=== PATIENT | female | born 1960 | race Caucasian/White ===

== ENCOUNTER 2017-01-13 18:03 | Emergency (ER) | payer OTHER ==
[~2017-01-13] VITALS: Ht 157.5 cm; Wt 57.7 kg
[~2017-01-13 18:03] MED LIST: BP MEDS; FLUID; Zestril,Prinivil PO
[2017-01-13 18:20] VITALS: BP 150/91
== END 2017-01-13 21:03 | disposition home or self-care (01) ==
LOC: EME 18:03
DX: S01.01XA Laceration without foreign body of scalp, initial encounter (principal); F10.129 Alcohol abuse with intoxication, unspecified; I10 Essential (primary) hypertension; W18.30XA Fall on same level, unspecified, initial encounter; Y92.89 Other specified places as the place of occurrence of the external cause
CPT/HCPCS: 99281; 99284

== ENCOUNTER 2017-04-01 17:40 | Emergency (ER) | payer OTHER ==
[~2017-04-01] VITALS: Ht 157.5 cm; Wt 55.2 kg
[2017-04-01 22:13] VITALS: BP 101/66
== END 2017-04-01 22:17 | disposition home or self-care (01) ==
LOC: EME → EDBD 17:40 → EME 22:17
DX: F10.129 Alcohol abuse with intoxication, unspecified (principal); S00.11XA Contusion of right eyelid and periocular area, initial encounter; W19.XXXA Unspecified fall, initial encounter; Y92.810 Car as the place of occurrence of the external cause; I10 Essential (primary) hypertension; Z87.891 Personal history of nicotine dependence
CPT/HCPCS: 70450; 70486; 99281; 99284; G0480